=== PATIENT | male | born 1945 | race African-American/Black ===

== ENCOUNTER 2019-05-12 15:26 | Observation (INO) ==
[2019-05-12] MEDS ORDERED: LACTATED RINGERS 1,000 ML IV ONE (15:37)
[2019-05-12] MEDS ORDERED: PANTOPRAZOLE 40 MG VIAL IV STA (15:37)
[2019-05-12] MEDS ORDERED: ONDANSETRON 4 MG/2 ML VIAL IV STA (15:37)
[2019-05-12 16:48] LABS: Basophils % 0.3 % (0.0-0.8); Eosinophils % 0.1 % (0.00-10.9); Hematocrit 34.9 VOL% (42.0-52.0); Hemoglobin 10.7 GM/DL (14.0-18.0); Immature Granulocytes % 0.9 %; Immature Granulocytes Absolute 0.08 #; Lymphocytes # 0.7 10*3/uL (1.4-4.0); Mean Corpuscular HGB Conc 30.7 GM/DL (32-36); Mean Corpuscular Volume 77.9 FL (87-102); Mean Platelet Volume 10.3 FL (9.6-12.0); Monocytes % 7.3 % (1.7-12.7); Neutrophils % 84.4 % (38.7-73.9); Platelet Count 149 T/CUMM (130-400); Red Blood Count 4.48 MC/CUMM (3.8-5.5); Red Cell Distribution Width 14.8 % (9.3-17.3); White Blood Count 9.4 T/CUMM (4-12)
[2019-05-12 16:56] LABS: Albumin 3.5 G/DL (3.4-5.0); Bilirubin,Total 0.9 MG/DL (0.2-1.0); Calcium 9.1 MG/DL (8.5-10.1); Osmolality,Calculated 283.2 MOS/KG (273-304); Total Protein 8.4 G/DL (6.4-8.3)
[2019-05-12 17:25] LABS: Apearance,Urine CLEAR (Clear); Bilirubin,Urine Negative (Negative); Blood, Urine Negative (Negative); Glucose,Urine (UA) Negative (Negative); Hyaline Casts,Urine 14 /LPF (0-3); Ketones,Urine Negative (Negative); Mucus,Urine Occasional /LPF (Occasional); Nitrite,Urine Negative (Negative); Protein,Urine 30 MG/DL; RBC,Urine 5 /HPF (0-4); Squamous Epithelial Cell,Urine Occasional /HPF (0-10); Urine Color Yellow (Yellow); Urine Specific Gravity 1.016 (1.001-1.035); WBC,Urine <1 /HPF (0-6)
[2019-05-12] MEDS ORDERED: guaiFENesin 200 MG/10 ML UDCUP PO PRN (18:06)
[2019-05-12] MEDS ORDERED: LACTULOSE 20 GM/30 ML UDCUP PO PRN (18:06)
[2019-05-12] MEDS ORDERED: traMADol 50 MG TABLET PO PRN (18:06)
[2019-05-12] MEDS ORDERED: BENZTROPINE 2 MG/2 ML AMP IV PRN (18:06)
[2019-05-12] MEDS ORDERED: ALPRAZolam 0.25 MG TABLET PO PRN (18:06)
[2019-05-12] MEDS ORDERED: MYLANTA/LIDO VISC 2:1 300 ML BOTTLE SWISH/SPIT PRN (18:06)
[2019-05-12] MEDS ORDERED: PROMETHAZINE INJ 25 MG in SODIUM CHLORIDE 0.9% 50 ML IV PRN (18:06)
[2019-05-12] MEDS ORDERED: ACETAMINOPHEN 325 MG TABLET PO PRN (18:06)
[2019-05-12] MEDS ORDERED: ONDANSETRON 4 MG/2 ML VIAL IV PRN (18:06)
[2019-05-12] MEDS ORDERED: chlorproMAZINE 25 MG TABLET PO PRN (18:06)
[2019-05-12] MEDS ORDERED: MYLANTA/LIDO VISC 2:1 300 ML BOTTLE SWISH/SWAL PRN (18:06)
[2019-05-12] MEDS ORDERED: MAGNESIUM HYDROXIDE SUSP 30 ML UDCUP PO PRN (18:06)
[2019-05-12] MEDS ORDERED: diphenhydrAMINE CAP 25 MG CAPSULE PO PRN (18:06)
[2019-05-12] MEDS ORDERED: ALUMINUM/MAGNES/SIMETH MAX STR 30 ML UDCUP PO PRN (18:06)
[2019-05-12] MEDS ORDERED: LOPERAMIDE 2 MG CAPSULE PO PRN ×2 (18:06)
[2019-05-12] MEDS ORDERED: DEXTROSE 10% 250 ML BAG IV PRN (18:27)
[2019-05-12] MEDS ORDERED: GLUCAGON 1 MG VIAL IM PRN (18:27)
[2019-05-12] MEDS: SODIUM CHLORIDE 0.9% 1,000 ML IV SCH (20:08)
[2019-05-12] MEDS: INSULIN LISPRO 100 UNIT/ML SUBCUT SCH (20:39)
[2019-05-12] MEDS ORDERED: TEMAZEPAM 7.5 MG CAPSULE PO PRN (21:00)
[2019-05-12] MEDS ORDERED: ENOXAPARIN 40 MG/0.4 ML SYRINGE SUBCUT SCH (21:00)
[2019-05-13 05:28] LABS: Basophils % 0.4 % (0.0-0.8); Eosinophils % 0.5 % (0.00-10.9); Hematocrit 32.7 VOL% (42.0-52.0); Hemoglobin 9.9 GM/DL (14.0-18.0); Immature Granulocytes % 0.7 %; Immature Granulocytes Absolute 0.05 #; Lymphocytes # 1.4 10*3/uL (1.4-4.0); Lymphocytes % 18.8 % (21.2-54.2); Mean Corpuscular HGB Conc 30.3 GM/DL (32-36); Monocytes % 14.1 % (1.7-12.7); Neutrophils % 65.5 % (38.7-73.9); Platelet Count 140 T/CUMM (130-400); Red Blood Count 4.19 MC/CUMM (3.8-5.5); Red Cell Distribution Width 14.9 % (9.3-17.3); White Blood Count 7.3 T/CUMM (4-12)
[2019-05-13 05:57] LABS: Albumin 2.9 G/DL (3.4-5.0); Bilirubin,Total 0.4 MG/DL (0.2-1.0); Calcium 9.1 MG/DL (8.5-10.1); Osmolality,Calculated 293.3 MOS/KG (273-304); Total Protein 7.4 G/DL (6.4-8.3)
[2019-05-13 08:26] VITALS: BP 121/68
[2019-05-13] MEDS: SODIUM CHLORIDE 0.9% 1,000 ML IV SCH (08:50)
[2019-05-13] MEDS: INSULIN LISPRO 100 UNIT/ML SUBCUT SCH (08:50)
[2019-05-13] MEDS ORDERED: TAMSULOSIN 0.4 MG CAPSULE PO SCH (09:00)
[2019-05-13] MEDS ORDERED: ATORVASTATIN 80 MG TABLET PO SCH (09:00)
[2019-05-13] MEDS ORDERED: PANTOPRAZOLE 40 MG TABLET PO SCH (09:00)
[2019-05-13] MEDS ORDERED: METOPROLOL TARTRATE 25 MG TABLET PO SCH (09:00)
== END 2019-05-13 11:32 | disposition home or self-care (01) ==
LOC: EDUNIT# → N.ED 15:26 → N.EDINP 15:26 → N.2E 19:10
PROVIDERS: ADMIT Internal Medicine; ATTEND Internal Medicine

== ENCOUNTER 2019-05-23 16:41 | Inpatient (IN) ==
[2019-05-23] MEDS ORDERED: PANTOPRAZOLE 40 MG VIAL IV STA (17:16)
[2019-05-23] MEDS ORDERED: SODIUM CHLORIDE 0.9% 1,000 ML IV STA (17:16)
[2019-05-23 18:02] LABS: Hematocrit 32.4 VOL% (42.0-52.0); Immature Granulocytes % 16.3 %; Immature Granulocytes Absolute 0.07 #; Lymphocytes # 0.2 10*3/uL (1.4-4.0); Lymphocytes % 44.2 % (21.2-54.2); Mean Corpuscular HGB Conc 30.9 GM/DL (32-36); Mean Corpuscular Volume 75.7 FL (87-102); Monocytes % 23.3 % (1.7-12.7); Neutrophils % 16.2 % (38.7-73.9); Platelet Count 100 T/CUMM (130-400); Red Blood Count 4.28 MC/CUMM (3.8-5.5); Red Cell Distribution Width 14.3 % (9.3-17.3)
[2019-05-23 18:07] LABS: White Blood Count 0.4 T/CUMM (4-12)
[2019-05-23 18:11] LABS: INR 1.1; PT Patient Result 12.2 SECS (9.6-12.2); Partial Thromboplastin Time 33.1 SECS (20.8-36.0)
[2019-05-23 18:27] LABS: Albumin 2.9 G/DL (3.4-5.0); Bilirubin,Total 0.7 MG/DL (0.2-1.0); Calcium 8.1 MG/DL (8.5-10.1); Osmolality,Calculated 302.1 MOS/KG (273-304); Total Protein 8.1 G/DL (6.4-8.3)
[2019-05-23 19:20] LABS: Band Neutrophils 3 % (0-10); Lymphocytes 66 % (20-55); Metamyelocytes 6 %; Segmented Neutrophils 9 % (50-85); Total Cells Counted 100
[2019-05-23 19:21] LABS: Anisocytosis 1+; Burr Cells 1+; Microcytosis 1+; Platelet Estimate Decreased; Poikilocytosis 1+; Reactive Lymphocytes 1+
[2019-05-23] MEDS ORDERED: ONDANSETRON 4 MG/2 ML VIAL IV PRN (21:05)
[2019-05-23] MEDS ORDERED: ACETAMINOPHEN 325 MG TABLET PO PRN (21:05)
[2019-05-23] MEDS ORDERED: SODIUM CHLORIDE 0.9% 1,000 ML IV PRN (21:14)
[2019-05-23] MEDS ORDERED: GLUCAGON 1 MG VIAL IM PRN (21:22)
[2019-05-23] MEDS ORDERED: DEXTROSE 50% 25 GM/50 ML VIAL IV PRN (21:22)
[2019-05-23] MEDS ORDERED: LISINOPRIL 10 MG TABLET PO SCH (21:30)
[2019-05-23] MEDS ORDERED: POTASSIUM CHLORIDE 20 MEQ TABLET PO ONE (22:29)
[2019-05-23] MEDS ORDERED: MAGNESIUM SULF RIDER 1 GM in PREMIX 1 EACH IV ONE (22:30)
[2019-05-23] MEDS: SODIUM CHLORIDE 0.9% 1,000 ML IV SCH (22:47)
[2019-05-23] MEDS: CALCIUM (CITRATE)/VITAMIN D 200 MG-125 UNIT TABLET PO SCH (22:52)
[2019-05-23] MEDS: hydroCHLOROthiazide 25 MG TABLET PO SCH (22:52)
[2019-05-23] MEDS: DEXAMETHASONE 4 MG TABLET PO SCH (22:52)
[2019-05-23] MEDS: INSULIN REGULAR 100 UNIT/ML SUBCUT SCH (23:04)
[2019-05-24 01:00] LABS: Hematocrit 28.7 VOL% (42.0-52.0); Hemoglobin 8.9 GM/DL (14.0-18.0)
[2019-05-24] MEDS ORDERED: SODIUM CHLORIDE 0.9% 500 ML IV ONE (04:56)
[2019-05-24 07:10] LABS: Hematocrit 27.3 VOL% (42.0-52.0); Hemoglobin 8.3 GM/DL (14.0-18.0)
[2019-05-24 07:38] LABS: Albumin 2.3 G/DL (3.4-5.0); Bilirubin,Total 1.5 MG/DL (0.2-1.0); Calcium 7.2 MG/DL (8.5-10.1); Total Protein 6.8 G/DL (6.4-8.3)
[2019-05-24] MEDS ORDERED: ABIRATERONE 1000 MG PO SCH (09:00)
[2019-05-24] MEDS: FILGRASTIM-SNDZ 480 MCG/0.8 ML SYRINGE SUBCUT SCH (09:23)
[2019-05-24] MEDS: POTASSIUM CHLORIDE 20 MEQ TABLET PO SCH (09:23)
[2019-05-24] MEDS: INSULIN REGULAR 100 UNIT/ML SUBCUT SCH ×4 (09:23→21:49)
[2019-05-24] MEDS: ATORVASTATIN 80 MG TABLET PO SCH (09:24)
[2019-05-24] MEDS: DEXAMETHASONE 4 MG TABLET PO SCH (09:24)
[2019-05-24] MEDS: PANTOPRAZOLE 40 MG TABLET PO SCH (09:24)
[2019-05-24] MEDS: CALCIUM (CITRATE)/VITAMIN D 200 MG-125 UNIT TABLET PO SCH ×2 (09:24→21:48)
[2019-05-24] MEDS: TAMSULOSIN 0.4 MG CAPSULE PO SCH (09:24)
[2019-05-24] MEDS: hydroCHLOROthiazide 25 MG TABLET PO SCH (09:47)
[2019-05-24] MEDS: SODIUM CHLORIDE 0.9% 1,000 ML IV SCH ×3 (10:35→18:54)
[2019-05-24] MEDS: METOPROLOL SUCCINATE XL 25 MG TABLET PO SCH (10:35)
[2019-05-24] MEDS: amLODIPine 5 MG TABLET PO SCH (10:35)
[2019-05-24 11:26] LABS: Apearance,Urine CLEAR (Clear); Bacteria,Urine Occasional /HPF (Few); Bilirubin,Urine Negative (Negative); Blood, Urine Moderate mg/dL (Negative); Glucose,Urine (UA) 50 mg/dL (Negative); Hyaline Casts,Urine 3 /LPF (0-3); Ketones,Urine Negative (Negative); Mucus,Urine Occasional /LPF (Occasional); Nitrite,Urine Negative (Negative); Protein,Urine 30 MG/DL; Urine Color Yellow (Yellow); Urine Specific Gravity 1.013 (1.001-1.035); Urine Urobilinogen < 2.0 EU/DL (0.2-1.0); WBC,Urine 2 /HPF (0-6)
[2019-05-24] MEDS: CETIRIZINE 10 MG TABLET PO SCH (12:42)
[2019-05-24 12:46] LABS: Hematocrit 27.6 VOL% (42.0-52.0); Hemoglobin 8.4 GM/DL (14.0-18.0)
[2019-05-24] MEDS: predniSONE 5 MG TABLET PO SCH ×2 (13:43→21:48)
[2019-05-24 18:34] LABS: Hematocrit 28.1 VOL% (42.0-52.0); Hemoglobin 8.6 GM/DL (14.0-18.0)
[2019-05-24] MEDS: INSULIN GLARGINE 100 UNIT/ML SUBCUT SCH (21:48)
[2019-05-25 02:34] LABS: Hematocrit 26.6 VOL% (42.0-52.0); Hemoglobin 8.3 GM/DL (14.0-18.0); Lymphocytes # 0.2 10*3/uL (1.4-4.0); Lymphocytes % 17.6 % (21.2-54.2); Mean Corpuscular HGB Conc 31.2 GM/DL (32-36); Mean Corpuscular Volume 75.1 FL (87-102); Mean Platelet Volume 11.6 FL (9.6-12.0); Monocytes % 44.4 % (1.7-12.7); Platelet Count 116 T/CUMM (130-400); Red Blood Count 3.54 MC/CUMM (3.8-5.5); Red Cell Distribution Width 14.4 % (9.3-17.3); White Blood Count 1.1 T/CUMM (4-12)
[2019-05-25 02:54] LABS: Osmolality,Calculated 305.8 MOS/KG (273-304)
[2019-05-25 03:30] LABS: Band Neutrophils 10 % (0-10); Lymphocytes 16 % (20-55); Metamyelocytes 4 %; Platelet Estimate Decreased; Segmented Neutrophils 18 % (50-85); Total Cells Counted 100
[2019-05-25] MEDS: POTASSIUM CHLORIDE 20 MEQ TABLET PO PRN (06:07)
[2019-05-25] MEDS: FILGRASTIM-SNDZ 480 MCG/0.8 ML SYRINGE SUBCUT SCH (08:45)
[2019-05-25] MEDS: TAMSULOSIN 0.4 MG CAPSULE PO SCH ×3 (08:45→22:00)
[2019-05-25] MEDS: POTASSIUM CHLORIDE 20 MEQ TABLET PO SCH (08:45)
[2019-05-25] MEDS: METOPROLOL SUCCINATE XL 25 MG TABLET PO SCH (08:45)
[2019-05-25] MEDS: CETIRIZINE 10 MG TABLET PO SCH (08:45)
[2019-05-25] MEDS: INSULIN REGULAR 100 UNIT/ML SUBCUT SCH ×4 (08:45→22:00)
[2019-05-25] MEDS: PANTOPRAZOLE 40 MG TABLET PO SCH (08:45)
[2019-05-25] MEDS: ATORVASTATIN 80 MG TABLET PO SCH (08:45)
[2019-05-25] MEDS: amLODIPine 5 MG TABLET PO SCH (08:45)
[2019-05-25] MEDS: CALCIUM (CITRATE)/VITAMIN D 200 MG-125 UNIT TABLET PO SCH ×2 (08:46→22:00)
[2019-05-25] MEDS: predniSONE 5 MG TABLET PO SCH ×2 (08:46→22:00)
[2019-05-25] MEDS: SODIUM CHLORIDE 0.9% 1,000 ML IV SCH ×2 (10:38→22:45)
[2019-05-25 10:58] LABS: Apearance,Urine CLEAR (Clear); Bacteria,Urine Occasional /HPF (Few); Bilirubin,Urine Negative (Negative); Blood, Urine Moderate mg/dL (Negative); Glucose,Urine (UA) 150 mg/dL (Negative); Ketones,Urine 5 mg/dL (Negative); Nitrite,Urine Negative (Negative); Protein,Urine 100 MG/DL; RBC,Urine 1 /HPF (0-4); Squamous Epithelial Cell,Urine Occasional /HPF (0-10); Urine Color Yellow (Yellow); Urine Specific Gravity 1.013 (1.001-1.035); Urine Urobilinogen < 2.0 EU/DL (0.2-1.0); WBC,Urine 1 /HPF (0-6)
[2019-05-25] MEDS ORDERED: TUBERCULIN SKIN TEST 0.1 ML SYRINGE INTRADERM ONE (17:32)
[2019-05-25] MEDS: INSULIN GLARGINE 100 UNIT/ML SUBCUT SCH (22:00)
[2019-05-26 05:04] LABS: Basophils # 0.1 10*3/uL (0.0-0.2); Basophils % 0.6 % (0.0-0.8); Hematocrit 25.4 VOL% (42.0-52.0); Hemoglobin 8.1 GM/DL (14.0-18.0); Immature Granulocytes % 6.5 %; Immature Granulocytes Absolute 0.82 #; Lymphocytes # 0.5 10*3/uL (1.4-4.0); Mean Corpuscular HGB Conc 31.9 GM/DL (32-36); Monocytes % 6.6 % (1.7-12.7); NRBC # 0.02 10*3/uL; Neutrophils % 82.3 % (38.7-73.9); Platelet Count 134 T/CUMM (130-400); Red Blood Count 3.48 MC/CUMM (3.8-5.5); Red Cell Distribution Width 14.5 % (9.3-17.3); White Blood Count 12.5 T/CUMM (4-12)
[2019-05-26 05:33] LABS: Band Neutrophils 34 % (0-10); Lymphocytes 5 % (20-55); Metamyelocytes 1 %; Platelet Estimate Decreased; Segmented Neutrophils 55 % (50-85); Total Cells Counted 100
[2019-05-26 05:34] LABS: Anisocytosis 2+; Microcytosis 2+; Ovalocytes 1+
[2019-05-26 06:22] LABS: Calcium 7.7 MG/DL (8.5-10.1); Osmolality,Calculated 306.3 MOS/KG (273-304)
[2019-05-26] MEDS: CETIRIZINE 10 MG TABLET PO SCH (09:22)
[2019-05-26] MEDS: FILGRASTIM-SNDZ 480 MCG/0.8 ML SYRINGE SUBCUT SCH (09:22)
[2019-05-26] MEDS: INSULIN REGULAR 100 UNIT/ML SUBCUT SCH ×4 (09:22→20:40)
[2019-05-26] MEDS: ATORVASTATIN 80 MG TABLET PO SCH (09:23)
[2019-05-26] MEDS: CALCIUM (CITRATE)/VITAMIN D 200 MG-125 UNIT TABLET PO SCH ×2 (09:23→20:39)
[2019-05-26] MEDS: TAMSULOSIN 0.4 MG CAPSULE PO SCH ×2 (09:23→20:40)
[2019-05-26] MEDS: SODIUM CHLORIDE 0.9% 1,000 ML IV SCH ×3 (09:23→20:38)
[2019-05-26] MEDS: METOPROLOL SUCCINATE XL 25 MG TABLET PO SCH (09:23)
[2019-05-26] MEDS: predniSONE 5 MG TABLET PO SCH ×2 (09:23→20:40)
[2019-05-26] MEDS: PANTOPRAZOLE 40 MG TABLET PO SCH (09:23)
[2019-05-26] MEDS: amLODIPine 5 MG TABLET PO SCH (09:23)
[2019-05-26] MEDS: POTASSIUM CHLORIDE 20 MEQ TABLET PO SCH (09:23)
[2019-05-26] MEDS: POTASSIUM CHLORIDE 20 MEQ TABLET PO PRN ×4 (16:37→20:40)
[2019-05-26] MEDS ORDERED: MAGNESIUM SULF RIDER 4 GM in PREMIX 1 EACH IV PRN (19:02)
[2019-05-26] MEDS: MAGNESIUM SULF RIDER 2 GM in PREMIX 1 EACH IV PRN ×2 (19:06→20:59)
[2019-05-26] MEDS: INSULIN GLARGINE 100 UNIT/ML SUBCUT SCH (20:40)
[2019-05-27 05:15] LABS: Basophils % 0.1 % (0.0-0.8); Hematocrit 26.8 VOL% (42.0-52.0); Hemoglobin 8.6 GM/DL (14.0-18.0); Immature Granulocytes % 11.7 %; Immature Granulocytes Absolute 3.95 #; Lymphocytes # 1.1 10*3/uL (1.4-4.0); Lymphocytes % 3.1 % (21.2-54.2); Mean Corpuscular HGB Conc 32.1 GM/DL (32-36); Mean Corpuscular Volume 72.2 FL (87-102); Mean Platelet Volume 12.3 FL (9.6-12.0); Monocytes % 5.8 % (1.7-12.7); NRBC # 0.06 10*3/uL; Neutrophils % 79.3 % (38.7-73.9); Platelet Count 165 T/CUMM (130-400); Red Blood Count 3.71 MC/CUMM (3.8-5.5); White Blood Count 33.7 T/CUMM (4-12)
[2019-05-27 05:42] LABS: Calcium 8.2 MG/DL (8.5-10.1); Osmolality,Calculated 300.6 MOS/KG (273-304)
[2019-05-27 07:39] LABS: Band Neutrophils 7 % (0-10); Burr Cells 1+; Hypochromasia 1+; Lymphocytes 2 % (20-55); Metamyelocytes 1 %; Promyelocytes 2 %; Segmented Neutrophils 84 % (50-85); Target Cells Slight; Total Cells Counted 100
[2019-05-27 07:40] LABS: Acanthocytes Few; Microcytosis 1+; Ovalocytes Few; Platelet Estimate Adequate; Polychromasia Slight
[2019-05-27] MEDS: CETIRIZINE 10 MG TABLET PO SCH (09:13)
[2019-05-27] MEDS: CALCIUM (CITRATE)/VITAMIN D 200 MG-125 UNIT TABLET PO SCH ×2 (09:13→20:26)
[2019-05-27] MEDS: predniSONE 5 MG TABLET PO SCH (09:14)
[2019-05-27] MEDS: INSULIN REGULAR 100 UNIT/ML SUBCUT SCH ×4 (09:14→20:27)
[2019-05-27] MEDS: TAMSULOSIN 0.4 MG CAPSULE PO SCH ×2 (09:14→20:26)
[2019-05-27] MEDS: amLODIPine 5 MG TABLET PO SCH (09:14)
[2019-05-27] MEDS: ATORVASTATIN 80 MG TABLET PO SCH (09:14)
[2019-05-27] MEDS: METOPROLOL SUCCINATE XL 25 MG TABLET PO SCH (09:14)
[2019-05-27] MEDS: POTASSIUM CHLORIDE 20 MEQ TABLET PO SCH (09:14)
[2019-05-27] MEDS: PANTOPRAZOLE 40 MG TABLET PO SCH (09:14)
[2019-05-27] MEDS: SODIUM CHLORIDE 0.9% 1,000 ML IV SCH ×2 (09:15→20:24)
[2019-05-27] MEDS: INSULIN GLARGINE 100 UNIT/ML SUBCUT SCH (20:26)
[2019-05-28] MEDS: SODIUM CHLORIDE 0.9% 1,000 ML IV SCH ×2 (04:28→19:14)
[2019-05-28] MEDS: INSULIN REGULAR 100 UNIT/ML SUBCUT SCH ×4 (08:07→21:27)
[2019-05-28 08:41] LABS: Basophils # 0.2 10*3/uL (0.0-0.2); Basophils % 0.4 % (0.0-0.8); Hematocrit 26.3 VOL% (42.0-52.0); Hemoglobin 8.4 GM/DL (14.0-18.0); Immature Granulocytes % 20.1 %; Immature Granulocytes Absolute 7.13 #; Lymphocytes # 1.4 10*3/uL (1.4-4.0); Lymphocytes % 3.9 % (21.2-54.2); Mean Corpuscular HGB Conc 31.9 GM/DL (32-36); Mean Corpuscular Volume 72.3 FL (87-102); Mean Platelet Volume 11.7 FL (9.6-12.0); Monocytes % 5.6 % (1.7-12.7); NRBC # 0.13 10*3/uL; Platelet Count 172 T/CUMM (130-400); Red Blood Count 3.64 MC/CUMM (3.8-5.5); Red Cell Distribution Width 15.8 % (9.3-17.3); White Blood Count 35.6 T/CUMM (4-12)
[2019-05-28 08:59] LABS: Calcium 7.6 MG/DL (8.5-10.1); Osmolality,Calculated 293.6 MOS/KG (273-304)
[2019-05-28 09:10] LABS: Band Neutrophils 20 % (0-10); Lymphocytes 9 % (20-55); Metamyelocytes 1 %; Platelet Estimate Normal; Segmented Neutrophils 64 % (50-85); Total Cells Counted 100
[2019-05-28 09:11] LABS: Anisocytosis 1+; Poikilocytosis 1+; Smudge Cells Few
[2019-05-28 09:12] LABS: Burr Cells Few; Polychromasia Slight
[2019-05-28] MEDS: CALCIUM (CITRATE)/VITAMIN D 200 MG-125 UNIT TABLET PO SCH ×2 (09:19→21:27)
[2019-05-28] MEDS: ATORVASTATIN 80 MG TABLET PO SCH (09:19)
[2019-05-28] MEDS: METOPROLOL SUCCINATE XL 25 MG TABLET PO SCH (09:19)
[2019-05-28] MEDS: PANTOPRAZOLE 40 MG TABLET PO SCH (09:19)
[2019-05-28] MEDS: TAMSULOSIN 0.4 MG CAPSULE PO SCH ×2 (09:19→21:27)
[2019-05-28] MEDS: amLODIPine 5 MG TABLET PO SCH (09:19)
[2019-05-28] MEDS: predniSONE 5 MG TABLET PO SCH (09:19)
[2019-05-28] MEDS: CETIRIZINE 10 MG TABLET PO SCH (09:19)
[2019-05-28] MEDS: POTASSIUM CHLORIDE 20 MEQ TABLET PO SCH (09:19)
[2019-05-28] MEDS: POTASSIUM CHLORIDE 20 MEQ TABLET PO PRN ×3 (11:34→15:31)
[2019-05-28] MEDS: INSULIN GLARGINE 100 UNIT/ML SUBCUT SCH (21:28)
[2019-05-29 05:08] LABS: Basophils # 0.1 10*3/uL (0.0-0.2); Basophils % 0.3 % (0.0-0.8); Hematocrit 25.9 VOL% (42.0-52.0); Hemoglobin 8.1 GM/DL (14.0-18.0); Immature Granulocytes % 17.3 %; Immature Granulocytes Absolute 4.53 #; Lymphocytes # 1.4 10*3/uL (1.4-4.0); Lymphocytes % 5.3 % (21.2-54.2); Mean Corpuscular HGB Conc 31.3 GM/DL (32-36); Mean Corpuscular Volume 72.5 FL (87-102); Mean Platelet Volume 11.4 FL (9.6-12.0); Monocytes % 4.7 % (1.7-12.7); NRBC # 0.19 10*3/uL; Neutrophils % 72.4 % (38.7-73.9); Platelet Count 181 T/CUMM (130-400); Red Blood Count 3.57 MC/CUMM (3.8-5.5); Red Cell Distribution Width 15.9 % (9.3-17.3); White Blood Count 26.1 T/CUMM (4-12)
[2019-05-29 05:35] LABS: Calcium 7.3 MG/DL (8.5-10.1); Osmolality,Calculated 288.7 MOS/KG (273-304)
[2019-05-29 05:44] LABS: Anisocytosis 1+; Band Neutrophils 2 % (0-10); Hypochromasia 1+; Lymphocytes 3 % (20-55); Myelocytes 4 %; Nucleated Red Blood Cells 1 (0-5); Segmented Neutrophils 86 % (50-85); Total Cells Counted 100
[2019-05-29 05:45] LABS: Acanthocytes 1+; Ovalocytes 1+; Platelet Estimate Adequate; Target Cells Few
[2019-05-29] MEDS: SODIUM CHLORIDE 0.9% 1,000 ML IV SCH ×3 (05:53→20:09)
[2019-05-29] MEDS: INSULIN REGULAR 100 UNIT/ML SUBCUT SCH ×4 (08:23→20:09)
[2019-05-29] MEDS: PANTOPRAZOLE 40 MG TABLET PO SCH (09:11)
[2019-05-29] MEDS: predniSONE 5 MG TABLET PO SCH (09:11)
[2019-05-29] MEDS: POTASSIUM CHLORIDE 20 MEQ TABLET PO SCH (09:11)
[2019-05-29] MEDS: TAMSULOSIN 0.4 MG CAPSULE PO SCH ×2 (09:11→20:44)
[2019-05-29] MEDS: METOPROLOL SUCCINATE XL 25 MG TABLET PO SCH (09:11)
[2019-05-29] MEDS: amLODIPine 5 MG TABLET PO SCH (09:11)
[2019-05-29] MEDS: MAGNESIUM SULF RIDER 2 GM in PREMIX 1 EACH IV PRN (09:11)
[2019-05-29] MEDS: CALCIUM (CITRATE)/VITAMIN D 200 MG-125 UNIT TABLET PO SCH ×2 (09:11→20:44)
[2019-05-29] MEDS: ATORVASTATIN 80 MG TABLET PO SCH (09:11)
[2019-05-29] MEDS: CETIRIZINE 10 MG TABLET PO SCH (09:11)
[2019-05-29] MEDS: POTASSIUM CHLORIDE 20 MEQ TABLET PO PRN (09:12)
[2019-05-29] MEDS: INSULIN GLARGINE 100 UNIT/ML SUBCUT SCH (20:45)
[2019-05-30] MEDS: SODIUM CHLORIDE 0.9% 1,000 ML IV SCH ×2 (02:37→15:05)
[2019-05-30 05:08] LABS: Basophils # 0.1 10*3/uL (0.0-0.2); Basophils % 0.2 % (0.0-0.8); Hematocrit 26.1 VOL% (42.0-52.0); Hemoglobin 8.1 GM/DL (14.0-18.0); Immature Granulocytes % 14.4 %; Immature Granulocytes Absolute 3.05 #; Lymphocytes # 1.3 10*3/uL (1.4-4.0); Mean Corpuscular Volume 72.9 FL (87-102); Mean Platelet Volume 11.4 FL (9.6-12.0); Monocytes % 5.8 % (1.7-12.7); NRBC # 0.13 10*3/uL; Neutrophils % 73.6 % (38.7-73.9); Platelet Count 189 T/CUMM (130-400); Red Blood Count 3.58 MC/CUMM (3.8-5.5); Red Cell Distribution Width 16.3 % (9.3-17.3); White Blood Count 21.1 T/CUMM (4-12)
[2019-05-30 05:34] LABS: Band Neutrophils 5 % (0-10); Hypochromasia 1+; Lymphocytes 12 % (20-55); Metamyelocytes 3 %; Microcytosis 1+; Nucleated Red Blood Cells 4 (0-5); Segmented Neutrophils 77 % (50-85); Total Cells Counted 100
[2019-05-30 05:35] LABS: Acanthocytes Few; Ovalocytes Few; Platelet Estimate Adequate; Target Cells Slight
[2019-05-30 05:36] LABS: Osmolality,Calculated 285.8 MOS/KG (273-304)
[2019-05-30] MEDS: MAGNESIUM SULF RIDER 2 GM in PREMIX 1 EACH IV PRN (05:47)
[2019-05-30] MEDS: POTASSIUM CHLORIDE 20 MEQ TABLET PO PRN ×4 (05:49→18:57)
[2019-05-30] MEDS: INSULIN REGULAR 100 UNIT/ML SUBCUT SCH ×4 (07:56→22:12)
[2019-05-30] MEDS: CALCIUM (CITRATE)/VITAMIN D 200 MG-125 UNIT TABLET PO SCH ×2 (08:33→22:12)
[2019-05-30] MEDS: POTASSIUM CHLORIDE 20 MEQ TABLET PO SCH (08:33)
[2019-05-30] MEDS: ATORVASTATIN 80 MG TABLET PO SCH (08:34)
[2019-05-30] MEDS: METOPROLOL SUCCINATE XL 25 MG TABLET PO SCH (08:34)
[2019-05-30] MEDS: predniSONE 5 MG TABLET PO SCH (08:34)
[2019-05-30] MEDS: amLODIPine 5 MG TABLET PO SCH (08:34)
[2019-05-30] MEDS: CETIRIZINE 10 MG TABLET PO SCH (08:34)
[2019-05-30] MEDS: TAMSULOSIN 0.4 MG CAPSULE PO SCH ×2 (08:34→22:12)
[2019-05-30] MEDS: PANTOPRAZOLE 40 MG TABLET PO SCH (08:35)
[2019-05-30] MEDS: INSULIN GLARGINE 100 UNIT/ML SUBCUT SCH (22:13)
[2019-05-31] MEDS: SODIUM CHLORIDE 0.9% 1,000 ML IV SCH ×3 (03:18→20:55)
[2019-05-31] MEDS: TAMSULOSIN 0.4 MG CAPSULE PO SCH ×2 (08:38→20:56)
[2019-05-31] MEDS: CALCIUM (CITRATE)/VITAMIN D 200 MG-125 UNIT TABLET PO SCH ×2 (08:38→20:56)
[2019-05-31] MEDS: INSULIN REGULAR 100 UNIT/ML SUBCUT SCH ×4 (08:38→20:56)
[2019-05-31] MEDS: PANTOPRAZOLE 40 MG TABLET PO SCH (08:38)
[2019-05-31] MEDS: ATORVASTATIN 80 MG TABLET PO SCH (08:39)
[2019-05-31] MEDS: METOPROLOL SUCCINATE XL 25 MG TABLET PO SCH (08:39)
[2019-05-31] MEDS: CETIRIZINE 10 MG TABLET PO SCH (08:39)
[2019-05-31] MEDS: POTASSIUM CHLORIDE 20 MEQ TABLET PO SCH (08:39)
[2019-05-31] MEDS: predniSONE 5 MG TABLET PO SCH (08:39)
[2019-05-31] MEDS: amLODIPine 5 MG TABLET PO SCH (08:39)
[2019-05-31] MEDS: INSULIN GLARGINE 100 UNIT/ML SUBCUT SCH (20:55)
[2019-06-01] MEDS: CALCIUM (CITRATE)/VITAMIN D 200 MG-125 UNIT TABLET PO SCH ×2 (09:25→20:30)
[2019-06-01] MEDS: CETIRIZINE 10 MG TABLET PO SCH (09:25)
[2019-06-01] MEDS: ATORVASTATIN 80 MG TABLET PO SCH (09:25)
[2019-06-01] MEDS: predniSONE 5 MG TABLET PO SCH (09:25)
[2019-06-01] MEDS: METOPROLOL SUCCINATE XL 25 MG TABLET PO SCH (09:25)
[2019-06-01] MEDS: TAMSULOSIN 0.4 MG CAPSULE PO SCH ×2 (09:25→20:30)
[2019-06-01] MEDS: amLODIPine 5 MG TABLET PO SCH (09:26)
[2019-06-01] MEDS: INSULIN REGULAR 100 UNIT/ML SUBCUT SCH ×4 (09:26→20:37)
[2019-06-01] MEDS: POTASSIUM CHLORIDE 20 MEQ TABLET PO SCH (09:26)
[2019-06-01] MEDS: SODIUM CHLORIDE 0.9% 1,000 ML IV SCH ×2 (09:26→19:34)
[2019-06-01] MEDS: PANTOPRAZOLE 40 MG TABLET PO SCH (09:26)
[2019-06-01] MEDS ORDERED: HydrOXYzine PAMOATE 25 MG CAPSULE PO PRN (16:32)
[2019-06-01] MEDS: INSULIN GLARGINE 100 UNIT/ML SUBCUT SCH (20:37)
[2019-06-02] MEDS: SODIUM CHLORIDE 0.9% 1,000 ML IV SCH ×2 (05:33→15:19)
[2019-06-02 09:16] LABS: Basophils % 0.3 % (0.0-0.8); Hematocrit 25.8 VOL% (42.0-52.0); Hemoglobin 7.8 GM/DL (14.0-18.0); Immature Granulocytes % 9.4 %; Immature Granulocytes Absolute 1.08 #; Lymphocytes # 1.5 10*3/uL (1.4-4.0); Lymphocytes % 12.8 % (21.2-54.2); Mean Corpuscular HGB Conc 30.2 GM/DL (32-36); Mean Platelet Volume 11.3 FL (9.6-12.0); Monocytes % 7.3 % (1.7-12.7); Neutrophils % 70.2 % (38.7-73.9); Platelet Count 195 T/CUMM (130-400); Red Blood Count 3.44 MC/CUMM (3.8-5.5); Red Cell Distribution Width 16.4 % (9.3-17.3); White Blood Count 11.4 T/CUMM (4-12)
[2019-06-02] MEDS: amLODIPine 5 MG TABLET PO SCH (09:38)
[2019-06-02] MEDS: TAMSULOSIN 0.4 MG CAPSULE PO SCH (09:38)
[2019-06-02] MEDS: POTASSIUM CHLORIDE 20 MEQ TABLET PO SCH (09:38)
[2019-06-02] MEDS: ATORVASTATIN 80 MG TABLET PO SCH (09:38)
[2019-06-02] MEDS: PANTOPRAZOLE 40 MG TABLET PO SCH (09:39)
[2019-06-02] MEDS: CETIRIZINE 10 MG TABLET PO SCH (09:39)
[2019-06-02] MEDS: predniSONE 5 MG TABLET PO SCH (09:39)
[2019-06-02 10:07] LABS: Band Neutrophils 3 % (0-10); Lymphocytes 11 % (20-55); Segmented Neutrophils 83 % (50-85)
[2019-06-02 10:08] LABS: Elliptocytes 1+
[2019-06-02 10:09] LABS: Anisocytosis 2+; Burr Cells 2+; Poikilocytosis 2+
[2019-06-02 10:10] LABS: Platelet Estimate Decreased; Total Cells Counted 100
[2019-06-02] MEDS: INSULIN REGULAR 100 UNIT/ML SUBCUT SCH ×3 (11:35→16:35)
[2019-06-02] MEDS: CALCIUM (CITRATE)/VITAMIN D 200 MG-125 UNIT TABLET PO SCH (11:36)
[2019-06-02] MEDS: METOPROLOL SUCCINATE XL 25 MG TABLET PO SCH (13:27)
[2019-06-03] MEDS: CALCIUM (CITRATE)/VITAMIN D 200 MG-125 UNIT TABLET PO SCH (02:14)
[2019-06-03] MEDS: INSULIN GLARGINE 100 UNIT/ML SUBCUT SCH (02:15)
[2019-06-03] MEDS: TAMSULOSIN 0.4 MG CAPSULE PO SCH (02:15)
[2019-06-03] MEDS: INSULIN REGULAR 100 UNIT/ML SUBCUT SCH (02:15)
[2019-06-03] MEDS: SODIUM CHLORIDE 0.9% 1,000 ML IV SCH (02:35)
[2019-06-05 15:57] VITALS: BP 127/76
== END 2019-06-03 10:15 | DRG 393 ==
LOC: EDUNIT# → N.ED 16:41 → N.EDINP 20:55 → SUATTDRO 20:55 → N.4E 21:39
PROVIDERS: ADMIT Internal Medicine; ATTEND Internal Medicine Geriatric Medicine

== ENCOUNTER 2019-06-22 11:09 | Inpatient (IN) ==
[2019-06-22 12:21] LABS: Amorphous Crystals,Urine Few /HPF (Few); Apearance,Urine CLOUDY (Clear); Bacteria,Urine Many /HPF (Few); Bilirubin,Urine Negative (Negative); Blood, Urine Moderate mg/dL (Negative); Glucose,Urine (UA) >=500 mg/dL (Negative); Ketones,Urine Negative (Negative); Nitrite,Urine Negative (Negative); Protein,Urine Negative; RBC,Urine 17 /HPF (0-4); Urine Color Amber (Yellow); Urine Specific Gravity 1.016 (1.001-1.035); Urine Urobilinogen < 2.0 EU/DL (0.2-1.0); WBC,Urine 131 /HPF (0-6)
[2019-06-22 14:07] LABS: Albumin 2.8 G/DL (3.4-5.0); Basophils % 0.1 % (0.0-0.8); Bilirubin,Total 0.5 MG/DL (0.2-1.0); Calcium 8.9 MG/DL (8.5-10.1); Hematocrit 40.5 VOL% (42.0-52.0); Hemoglobin 12.1 GM/DL (14.0-18.0); Immature Granulocytes % 1.3 %; Lymphocytes # 0.9 10*3/uL (1.4-4.0); Lymphocytes % 5.7 % (21.2-54.2); Mean Corpuscular HGB Conc 29.9 GM/DL (32-36); Mean Corpuscular Volume 77.7 FL (87-102); Mean Platelet Volume 11.4 FL (9.6-12.0); Monocytes % 8.1 % (1.7-12.7); Neutrophils % 84.8 % (38.7-73.9); Osmolality,Calculated 301.1 MOS/KG (273-304); Platelet Count 232 T/CUMM (130-400); Red Blood Count 5.21 MC/CUMM (3.8-5.5); Red Cell Distribution Width 16.9 % (9.3-17.3); Total Protein 7.1 G/DL (6.4-8.3); White Blood Count 15.5 T/CUMM (4-12)
[2019-06-22] MEDS ORDERED: SODIUM CHLORIDE 0.9% 1,000 ML IV STA (14:14)
[2019-06-22] MEDS ORDERED: INSULIN REGULAR 100 UNIT/ML IV STA (14:14)
[2019-06-22] MEDS ORDERED: cefTRIAXone 1,000 MG in SODIUM CHLORIDE 0.9% 100 ML IV STA (14:14)
[2019-06-22] MEDS ORDERED: NICOTINE 21 MG/24 HR PATCH TRANSDERM PRN (15:40)
[2019-06-22] MEDS ORDERED: ACETAMINOPHEN 325 MG TABLET PO PRN (15:40)
[2019-06-22] MEDS ORDERED: GLUCAGON 1 MG VIAL IM PRN ×2 (15:42→17:50)
[2019-06-22] MEDS ORDERED: SODIUM POLYSTYRENE SULFATE 15 GM/60 ML BOTTLE PO STA (15:46)
[2019-06-22] MEDS: MEROPENEM 500 MG in SODIUM CHLORIDE 0.9% 100 ML IV SCH (17:11)
[2019-06-22] MEDS: ASPIRIN EC 81 MG TABLET PO SCH (17:20)
[2019-06-22] MEDS: TAMSULOSIN 0.4 MG CAPSULE PO SCH (17:20)
[2019-06-22] MEDS: ATORVASTATIN 80 MG TABLET PO SCH (17:20)
[2019-06-22] MEDS: SODIUM CHLORIDE 0.9% 1,000 ML IV SCH (17:21)
[2019-06-22] MEDS: FAMOTIDINE 20 MG TABLET PO SCH (17:21)
[2019-06-22] MEDS: INSULIN LISPRO 100 UNIT/ML SUBCUT SCH ×6 (17:22→22:14)
[2019-06-22] MEDS ORDERED: DEXTROSE 10% 25 GM/250 ML BAG IV PRN (17:50)
[2019-06-22 18:54] LABS: Troponin I 0.154 NG/ML (0.00-0.045)
[2019-06-22] MEDS ORDERED: SODIUM CHLORIDE 0.9% 1,000 ML IV ONE (19:44)
[2019-06-22] MEDS: CALCIUM (CITRATE)/VITAMIN D 200 MG-125 UNIT TABLET PO SCH (20:56)
[2019-06-22] MEDS: DEXAMETHASONE 4 MG TABLET PO SCH (20:57)
[2019-06-22] MEDS ORDERED: ENOXAPARIN 30 MG/0.3 ML SYRINGE SUBCUT SCH (21:00)
[2019-06-23] MEDS: MEROPENEM 500 MG in SODIUM CHLORIDE 0.9% 100 ML IV SCH ×3 (00:39→16:10)
[2019-06-23] MEDS: SODIUM CHLORIDE 0.9% 1,000 ML IV SCH ×3 (00:40→16:46)
[2019-06-23] MEDS ORDERED: DEXTROSE 10% 250 ML IV ONE ×2 (00:53→04:40)
[2019-06-23] MEDS: INSULIN LISPRO 100 UNIT/ML SUBCUT SCH ×7 (00:58→21:06)
[2019-06-23] MEDS: DEXTROSE 10% 25 GM/250 ML BAG IV PRN ×2 (00:58→12:03)
[2019-06-23] MEDS ORDERED: SODIUM CHLORIDE 0.9% 250 ML IV ONE (04:29)
[2019-06-23 04:48] LABS: Basophils % 0.1 % (0.0-0.8); Hematocrit 31.1 VOL% (42.0-52.0); Hemoglobin 9.5 GM/DL (14.0-18.0); Immature Granulocytes % 1.4 %; Immature Granulocytes Absolute 0.16 #; Lymphocytes # 0.4 10*3/uL (1.4-4.0); Lymphocytes % 3.4 % (21.2-54.2); Mean Corpuscular HGB Conc 30.5 GM/DL (32-36); Mean Corpuscular Volume 76.2 FL (87-102); Mean Platelet Volume 10.7 FL (9.6-12.0); Monocytes % 3.4 % (1.7-12.7); Neutrophils % 91.7 % (38.7-73.9); Platelet Count 192 T/CUMM (130-400); Red Blood Count 4.08 MC/CUMM (3.8-5.5); Red Cell Distribution Width 16.9 % (9.3-17.3); White Blood Count 11.1 T/CUMM (4-12)
[2019-06-23] MEDS ORDERED: NOREPINEPHRINE 4 MG/4 ML VIAL IV ONE (04:52)
[2019-06-23 05:16] LABS: Alanine Aminotransferase 18 U/L (16-61); Albumin 2.1 G/DL (3.4-5.0); Alkaline Phosphatase 68 U/L (45-117); Aspartate Amino Transferase 14 U/L (0-37); Bilirubin,Total < 0.39 MG/DL (0.2-1.0); Blood Urea Nitrogen 67 MG/DL (7-18); Calcium 7.8 MG/DL (8.5-10.1); Estimated Glom Filtration Rate 41 ML/MIN; HDL Cholesterol 53 MG/DL (40-60); Osmolality,Calculated 292.5 MOS/KG (273-304); Risk Ratio 2.17; Total Protein 5.6 G/DL (6.4-8.3); Triglycerides 52 MG/DL (2-150); VLDL CHOLESTEROL 10.4 MG/DL
[2019-06-23 05:21] LABS: Glucose 42 MG/DL (74-106)
[2019-06-23 05:48] LABS: Band Neutrophils 2 % (0-10); Lymphocytes 3 % (20-55); Segmented Neutrophils 93 % (50-85); Total Cells Counted 100
[2019-06-23 05:49] LABS: Hypochromasia 1+
[2019-06-23 05:50] LABS: Acanthocytes Few; Burr Cells 1+; Platelet Estimate Normal; Schistocytes Few
[2019-06-23 05:51] LABS: Anisocytosis 2+; Microcytosis 2+; Ovalocytes 2+; Poikilocytosis 2+
[2019-06-23] MEDS ORDERED: NOREPINEPHRINE 8 MG in SODIUM CHLORIDE 0.9% 242 ML IV PRN (06:04)
[2019-06-23] MEDS ORDERED: HYDROCORTISONE 100 MG VIAL IV ONE (07:48)
[2019-06-23] MEDS ORDERED: SODIUM CHLORIDE 0.9% 1,000 ML IV ONE (07:49)
[2019-06-23] MEDS ORDERED: MAGNESIUM SULF RIDER 4 GM in PREMIX 1 EACH IV ONE (08:30)
[2019-06-23] MEDS: CALCIUM (CITRATE)/VITAMIN D 200 MG-125 UNIT TABLET PO SCH ×2 (09:16→21:03)
[2019-06-23] MEDS: ATORVASTATIN 80 MG TABLET PO SCH (09:16)
[2019-06-23] MEDS: ASPIRIN EC 81 MG TABLET PO SCH (09:16)
[2019-06-23] MEDS: TAMSULOSIN 0.4 MG CAPSULE PO SCH (09:16)
[2019-06-23] MEDS: DEXAMETHASONE 4 MG TABLET PO SCH ×2 (09:16→21:03)
[2019-06-23] MEDS: FAMOTIDINE 20 MG TABLET PO SCH (09:16)
[2019-06-23] MEDS: HYDROCORTISONE 100 MG VIAL IV SCH (16:09)
[2019-06-23] MEDS ORDERED: ALUM/MAG/SIMETH/LIDO VISC 1:1 30 ML BOTTLE PO ONE (18:13)
[2019-06-23] MEDS: ENOXAPARIN 40 MG/0.4 ML SYRINGE SUBCUT SCH (21:07)
[2019-06-24] MEDS: HYDROCORTISONE 100 MG VIAL IV SCH ×3 (00:16→16:13)
[2019-06-24] MEDS: MEROPENEM 500 MG in SODIUM CHLORIDE 0.9% 100 ML IV SCH (00:19)
[2019-06-24] MEDS: INSULIN LISPRO 100 UNIT/ML SUBCUT SCH ×6 (00:25→22:00)
[2019-06-24] MEDS: SODIUM CHLORIDE 0.9% 1,000 ML IV SCH ×3 (00:28→17:16)
[2019-06-24 05:09] LABS: Hemoglobin 9.1 GM/DL (14.0-18.0); Immature Granulocytes % 0.6 %; Immature Granulocytes Absolute 0.04 #; Lymphocytes # 0.3 10*3/uL (1.4-4.0); Lymphocytes % 4.8 % (21.2-54.2); Mean Corpuscular HGB Conc 30.3 GM/DL (32-36); Mean Corpuscular Volume 77.5 FL (87-102); Mean Platelet Volume 10.9 FL (9.6-12.0); Monocytes % 4.7 % (1.7-12.7); Neutrophils % 89.9 % (38.7-73.9); Platelet Count 166 T/CUMM (130-400); Red Blood Count 3.87 MC/CUMM (3.8-5.5); Red Cell Distribution Width 17.2 % (9.3-17.3); White Blood Count 6.7 T/CUMM (4-12)
[2019-06-24 05:34] LABS: Acanthocytes Few; Burr Cells 1+; Lymphocytes 6 % (20-55); Segmented Neutrophils 93 % (50-85); Total Cells Counted 100
[2019-06-24 05:35] LABS: Anisocytosis 1+; Calcium 7.2 MG/DL (8.5-10.1); Hypochromasia 1+; Microcytosis 1+; Osmolality,Calculated 290.8 MOS/KG (273-304)
[2019-06-24 05:36] LABS: Ovalocytes Slight; Platelet Estimate Adequate
[2019-06-24] MEDS ORDERED: MEROPENEM 500 MG in SODIUM CHLORIDE 0.9% 100 ML IV SCH (08:00)
[2019-06-24] MEDS: FAMOTIDINE 20 MG TABLET PO SCH (09:02)
[2019-06-24] MEDS: DEXAMETHASONE 4 MG TABLET PO SCH ×2 (09:02→21:09)
[2019-06-24] MEDS: CALCIUM (CITRATE)/VITAMIN D 200 MG-125 UNIT TABLET PO SCH ×2 (09:03→21:08)
[2019-06-24] MEDS: ASPIRIN EC 81 MG TABLET PO SCH (09:03)
[2019-06-24] MEDS: ATORVASTATIN 80 MG TABLET PO SCH (09:03)
[2019-06-24] MEDS: TAMSULOSIN 0.4 MG CAPSULE PO SCH (09:17)
[2019-06-24] MEDS: cefTRIAXone 1,000 MG in SYRINGE 1 EACH IV SCH (11:50)
[2019-06-24] MEDS ORDERED: POTASSIUM CHLORIDE 20 MEQ TABLET PO PRN ×2 (14:55→15:10)
[2019-06-24] MEDS: ENOXAPARIN 40 MG/0.4 ML SYRINGE SUBCUT SCH (21:09)
[2019-06-25] MEDS: HYDROCORTISONE 100 MG VIAL IV SCH ×4 (01:20→23:37)
[2019-06-25] MEDS: INSULIN LISPRO 100 UNIT/ML SUBCUT SCH ×6 (01:25→20:42)
[2019-06-25] MEDS: SODIUM CHLORIDE 0.9% 1,000 ML IV SCH ×2 (03:35→12:42)
[2019-06-25 07:37] LABS: Hematocrit 27.4 VOL% (42.0-52.0); Hemoglobin 8.4 GM/DL (14.0-18.0); Immature Granulocytes % 0.7 %; Immature Granulocytes Absolute 0.04 #; Lymphocytes # 0.4 10*3/uL (1.4-4.0); Mean Corpuscular HGB Conc 30.7 GM/DL (32-36); Mean Corpuscular Volume 74.9 FL (87-102); Mean Platelet Volume 11.2 FL (9.6-12.0); Monocytes % 5.1 % (1.7-12.7); Neutrophils % 87.2 % (38.7-73.9); Platelet Count 161 T/CUMM (130-400); Red Blood Count 3.66 MC/CUMM (3.8-5.5); Red Cell Distribution Width 17.4 % (9.3-17.3); White Blood Count 5.9 T/CUMM (4-12)
[2019-06-25] MEDS: FAMOTIDINE 20 MG TABLET PO SCH (08:52)
[2019-06-25] MEDS: CALCIUM (CITRATE)/VITAMIN D 200 MG-125 UNIT TABLET PO SCH ×2 (08:53→20:16)
[2019-06-25] MEDS: DEXAMETHASONE 4 MG TABLET PO SCH ×2 (08:53→20:16)
[2019-06-25] MEDS: ASPIRIN EC 81 MG TABLET PO SCH (08:53)
[2019-06-25] MEDS: TAMSULOSIN 0.4 MG CAPSULE PO SCH (08:53)
[2019-06-25] MEDS: ATORVASTATIN 80 MG TABLET PO SCH (08:53)
[2019-06-25] MEDS: cefTRIAXone 1,000 MG in SYRINGE 1 EACH IV SCH (12:42)
[2019-06-25] MEDS: ENOXAPARIN 40 MG/0.4 ML SYRINGE SUBCUT SCH (20:17)
[2019-06-26] MEDS: INSULIN LISPRO 100 UNIT/ML SUBCUT SCH ×6 (00:53→20:57)
[2019-06-26] MEDS: SODIUM CHLORIDE 0.9% 1,000 ML IV SCH ×2 (00:54→17:15)
[2019-06-26 05:15] LABS: Hemoglobin 8.2 GM/DL (14.0-18.0); Immature Granulocytes % 0.6 %; Immature Granulocytes Absolute 0.03 #; Lymphocytes # 0.5 10*3/uL (1.4-4.0); Lymphocytes % 10.6 % (21.2-54.2); Mean Corpuscular HGB Conc 30.4 GM/DL (32-36); Mean Corpuscular Volume 77.4 FL (87-102); Mean Platelet Volume 12.4 FL (9.6-12.0); Monocytes % 7.2 % (1.7-12.7); Neutrophils % 81.6 % (38.7-73.9); Platelet Count 118 T/CUMM (130-400); Red Blood Count 3.49 MC/CUMM (3.8-5.5); Red Cell Distribution Width 17.6 % (9.3-17.3)
[2019-06-26 05:44] LABS: Calcium 6.5 MG/DL (8.5-10.1); Osmolality,Calculated 287.3 MOS/KG (273-304)
[2019-06-26 06:14] LABS: Acanthocytes 1+; Anisocytosis 1+; Burr Cells 1+
[2019-06-26 06:15] LABS: Ovalocytes Few; Platelet Estimate Adequate
[2019-06-26] MEDS: ATORVASTATIN 80 MG TABLET PO SCH (09:20)
[2019-06-26] MEDS: DEXAMETHASONE 4 MG TABLET PO SCH ×2 (09:20→20:57)
[2019-06-26] MEDS: TAMSULOSIN 0.4 MG CAPSULE PO SCH ×2 (09:20→20:57)
[2019-06-26] MEDS: FAMOTIDINE 20 MG TABLET PO SCH (09:20)
[2019-06-26] MEDS: CALCIUM (CITRATE)/VITAMIN D 200 MG-125 UNIT TABLET PO SCH ×2 (09:20→20:56)
[2019-06-26] MEDS: ASPIRIN EC 81 MG TABLET PO SCH (09:20)
[2019-06-26] MEDS ORDERED: CALCIUM CHLORIDE 1,000 MG/10 ML SYRINGE IV ONE (09:49)
[2019-06-26] MEDS ORDERED: MAGNESIUM SULF RIDER 2 GM in PREMIX 1 EACH IV ONE (09:50)
[2019-06-26] MEDS ORDERED: SODIUM CHLORIDE 0.9% 1,000 ML IV PRN (13:00)
[2019-06-26] MEDS: cefTRIAXone 1,000 MG in SYRINGE 1 EACH IV SCH (13:05)
[2019-06-26] MEDS: ENOXAPARIN 40 MG/0.4 ML SYRINGE SUBCUT SCH (20:57)
[2019-06-27] MEDS: INSULIN LISPRO 100 UNIT/ML SUBCUT SCH ×4 (00:29→11:52)
[2019-06-27 05:23] LABS: Hematocrit 30.2 VOL% (42.0-52.0); Hemoglobin 9.2 GM/DL (14.0-18.0); Immature Granulocytes % 0.8 %; Immature Granulocytes Absolute 0.05 #; Lymphocytes # 0.7 10*3/uL (1.4-4.0); Lymphocytes % 11.3 % (21.2-54.2); Mean Corpuscular HGB Conc 30.5 GM/DL (32-36); Mean Platelet Volume 12.9 FL (9.6-12.0); Monocytes % 5.6 % (1.7-12.7); Neutrophils % 82.3 % (38.7-73.9); Platelet Count 153 T/CUMM (130-400); Red Blood Count 3.87 MC/CUMM (3.8-5.5); Red Cell Distribution Width 17.2 % (9.3-17.3); White Blood Count 6.2 T/CUMM (4-12)
[2019-06-27 05:49] LABS: Platelet Estimate Normal
[2019-06-27 05:51] LABS: Acanthocytes 1+; Burr Cells 1+
[2019-06-27 05:52] LABS: Ovalocytes Few; Polychromasia Slight
[2019-06-27 05:53] LABS: Anisocytosis 1+; Hypochromasia Slight; Microcytosis 2+
[2019-06-27 06:01] LABS: Calcium 7.2 MG/DL (8.5-10.1)
[2019-06-27] MEDS: ATORVASTATIN 80 MG TABLET PO SCH (08:10)
[2019-06-27] MEDS: DEXAMETHASONE 4 MG TABLET PO SCH (08:10)
[2019-06-27] MEDS: TAMSULOSIN 0.4 MG CAPSULE PO SCH (08:10)
[2019-06-27] MEDS: ASPIRIN EC 81 MG TABLET PO SCH (08:10)
[2019-06-27] MEDS: FAMOTIDINE 20 MG TABLET PO SCH (08:10)
[2019-06-27] MEDS: CALCIUM (CITRATE)/VITAMIN D 200 MG-125 UNIT TABLET PO SCH (08:10)
[2019-06-27] MEDS: cefTRIAXone 1,000 MG in SYRINGE 1 EACH IV SCH (11:52)
[2019-06-27 16:12] VITALS: BP 154/74
[2019-06-28] MEDS ORDERED: INSULIN ASPART U SUBCUT SCH (09:00)
[2019-06-28] MEDS ORDERED: INSULIN DETEMIR 100 UNIT/ML SUBCUT SCH ×2 (09:00)
== END 2019-06-27 17:59 | DRG 698 ==
LOC: N.ED 11:09 → SUATTDRO 15:38 → N.EDINP 15:38 → N.4E 16:15 → N.ICU 06-23 04:53 → N.4E 06-24 17:02
PROVIDERS: ADMIT Internal Medicine; ATTEND Internal Medicine